=== PATIENT | male | born 1995 | race African-American/Black ===

== ENCOUNTER 2018-12-01 10:17 | Emergency (ER) | payer OTHER ==
[~2018-12-01] VITALS: Ht 182.9 cm; Wt 90.3 kg
--- NOTE | 2018-12-01 10:37 | PHYS DOC ---
Past History Past Medical History: No Pertinent History Past Surgical History: No Surgical History Smoking: Non-smoker Alcohol Use: Occasionally Drug Use: None Adult General Chief Complaint Chief Complaint: CHEST PAIN [facility] HPI Patient is a 23-year-old male that presents with sided chest discomfort that started at approximately 3:30 this morning. No radiation the discomfort, no nausea or vomiting. No worse with exertion. There is a mild respirophasic component with deep breaths. No recent travel. No lower extremity swelling. No known hypercoagulable state. No cough or fever. Other than the very deep breaths nothing seems to make the discomfort better or worse. Patient has taken no medicine for this. Patient has no family cardiac history of anyone having heart issues in the 40s or 50s or younger. Both of his grandmothers had strokes in their 70s. His discomfort is mild to moderate in intensity.[] Review of Systems Review of Systems Constitutional: Denies fever or chills [] Eyes: Denies change in visual acuity, redness, or eye pain [] HENT: Denies nasal congestion or sore throat [] Respiratory: Denies cough or shortness of breath [] Cardiovascular: No additional information not addressed in HPI [] GI: Denies abdominal pain, nausea, vomiting, bloody stools or diarrhea [] : Denies dysuria or hematuria [] Musculoskeletal: Denies back pain or joint pain [] Integument: Denies rash or skin lesions [] Neurologic: Denies headache, focal weakness or sensory changes [] Endocrine: Denies polyuria or polydipsia [] All other systems were reviewed and found to be within normal limits, except as documented in this note. Allergies Allergies Allergies Coded Allergies Type Severity Reaction Last Updated Verified No Known Drug Allergies 12/01/18 No Physical Exam Physical Exam Constitutional: Well developed, well nourished, no acute distress, non-toxic appearance. [] HENT: Normocephalic, atraumatic, bilateral external ears normal, oropharynx moist, no oral exudates, nose normal. [] Eyes: PERRLA, EOMI, conjunctiva normal, no discharge. [] Neck: Normal range of motion, no tenderness, supple, no stridor. [] Cardiovascular:Heart rate regular rhythm, no murmur [] Lungs & Thorax: Bilateral breath sounds clear to auscultation. There is left- sided discomfort to palpation along the sternal border at the insertion of the fourth rib. This re-creates his discomfort. [] Abdomen: Bowel sounds normal, soft, no tenderness, no masses, no pulsatile masses. [] Skin: Warm, dry, no erythema, no rash. [] Back: No tenderness, no CVA tenderness. [] Extremities: No tenderness, no cyanosis, no clubbing, ROM intact, no edema. [] Neurologic: Alert and oriented X 3, normal motor function, normal sensory function, no focal deficits noted. [] Psychologic: Affect normal, judgement normal, mood normal. [] EKG EKG EKG shows a sinus rhythm at 72 bpm, normal axis, normal QTC at 387 ms, no ST elevation. No old EKG available for comparison. This was interpreted by me at 1029.[] Radiology/Procedures Radiology/Procedures PROCEDURE: CHEST PA & LATERAL CHEST PA LATERAL History: Left-sided chest pain. Comparison: None. Findings: The cardiomediastinal silhouette is normal. Pulmonary vasculature is normal. The lungs are clear. No pleural effusion or pneumothorax is seen. There is no acute bone abnormality. IMPRESSION: No acute cardiopulmonary process. [] Course & Med Decision Making Course & Med Decision Making Pertinent Labs and Imaging studies reviewed. (See chart for details) ED course: Patient arrived, was placed in bed, and tolerated exam well. He was transported to and from radiology with any complications. After the return of lab and imaging studies, these were discussed with the patient who voiced understanding. All questions were answered. He was discharged in improved condi tion. Medical decision making: There is no evidence of this being an acute coronary syndrome, pneumonia, pneumothorax, esophageal rupture, pulmonary embolism, nor thoracic aortic dissection. Believe this most likely to be more of a costochondritis-type picture. Patient scores 0 points on the HEART score and with negative cardiac enzymes 6 hours after the onset of this discomfort believe the risk of this being cardiac etiology to be even lower than the already low risk from the guidelines within the HEART score itself[] Dragon Disclaimer Dragon Disclaimer This electronic medical record was generated, in whole or in part, using a voice recognition dictation system. Departure Departure: Impression: Primary Impression: Chest pain Disposition: HOME, SELF-CARE Condition: IMPROVED Referrals: JEFF JARA PA-C (PCP) Follow-up in 2 days Patient Instructions: Chest Pain (Nonspecific), Costochondritis Additional Instructions: Follow-up with your regular doctor in 2 days. Return to the ER if worsening discomfort, difficulty breathing, or any other concerns. Scripts Meloxicam (MELOXICAM) 7.5 Mg Tablet 7.5 MG PO DAILY for PAIN, #20 TAB Prov: ALIVIA QUEZADA DO 12/01/18 Problem Qualifiers Primary Impression: Chest pain Chest pain type: unspecified Qualified Codes: R07.9 - Chest pain, unspecified ALIVIA QUEZADA DO December 01, 2018 10:36
[2018-12-01] MEDS ORDERED: ASPIRIN 81 MG TAB.CHEW PO ONE (10:45)
[2018-12-01 10:47] LABS: BASO % 1 % (0-3); EOS # 0.1 x10^3/uL (0.0-0.7); EOS % 1 % (0-3); HEMATOCRIT 46.3 % (39.0-53.0); HEMOGLOBIN 15.2 g/dL (13.0-17.5); LYMPH # 1.9 x10^3/uL (1.0-4.8); LYMPH % 31 % (24-48); MEAN CORPUSCULAR HEMOGLOBIN 29 pg (25-35); MEAN CORPUSCULAR HGB CONC 33 g/dL (31-37); MEAN CORPUSCULAR VOLUME 87 fL (79-100); MONO # 0.6 x10^3/uL (0.0-1.1); MONO % 10 % (0-9); NEUT # 3.5 x10^3uL (1.8-7.7); NEUT % 57 % (31-73); PLATELET COUNT 184 x10^3/uL (140-400); RED BLOOD COUNT 5.33 x10^6/uL (4.30-5.70); RED CELL DISTRIBUTION WIDTH 13.5 % (11.5-14.5); WHITE BLOOD COUNT 6.1 x10^3/uL (4.0-11.0)
[2018-12-01 10:55] VITALS: BP 135/79
--- NOTE | 2018-12-01 11:00 | RAD ---
CHEST PA LATERAL History: Left-sided chest pain. Comparison: None. Findings: The cardiomediastinal silhouette is normal. Pulmonary vasculature is normal. The lungs are clear. No pleural effusion or pneumothorax is seen. There is no acute bone abnormality. IMPRESSION: No acute cardiopulmonary process. Electronically signed by: Matty Murguia MD (12/01/2018 10:57 AM) [id number]
[2018-12-01 11:08] LABS: ALBUMIN 4.1 g/dL (3.4-5.0); ALBUMIN/GLOBULIN RATIO 1.1 (1.0-1.7); CALCIUM 9.6 mg/dL (8.5-10.1); CREATININE 1.2 mg/dL (0.7-1.3); GFR 91.6; MAGNESIUM 1.8 mg/dL (1.8-2.4); POTASSIUM 3.8 mmol/L (3.5-5.1); TOTAL BILIRUBIN 0.5 mg/dL (0.2-1.0); TOTAL PROTEIN 7.8 g/dL (6.4-8.2)
[2018-12-01] MEDS ORDERED: MELO7.5T29 PO (11:16)
--- NOTE | 2018-12-01 14:58 | EKG ---
[address] [address] Test Date: 2018-12-01 Test Time: 10:29:20 Pat Name: SHAWANDA GUTIERREZ Department: Room: Gender: M Fit Model: : 1995 Requested By: ALIVIA QUEZADA Order Number: [id number] Reading MD: Measurements Intervals [place] Rate: 72 P: 59 VA: 174 QRS: 69 QRSD: 90 T: 31 QT: 352 QTc: 387 Interpretive Statements SINUS RHYTHM NO SPECIFIC ECG ABNORMALITIES RI6.01 No previous ECG available for comparison
== END 2018-12-01 11:22 | disposition home or self-care (01) ==
LOC: ER 10:17
DX: R07.89 Other chest pain (principal)
CPT/HCPCS: 36415; 71046; 80053; 83690; 83735; 83880; 84443; 84484; 85025; 85379; 85610; 85730; 93005; 99285